=== PATIENT | male | born 1995 | race American Indian/Alaskan Native ===

== ENCOUNTER 2017-05-17 13:19 | Emergency (ER) | payer SELFPAY ==
[2017-05-17 14:03] VITALS: BP 131/57
--- NOTE | 2017-05-17 15:09 | XRay Report ---
LEFT FOOT, 2 views: History: Left foot pain. The bony architecture is intact. Bony alignment is normal. No soft tissue abnormalities are seen. The joint spaces appear preserved. IMPRESSION: Normal left foot.
--- NOTE | 2017-05-17 15:49 | Emergency Department Report ---
HPI - General Chief Complaint: Extremity Injury, Lower Time Seen by Provider: 05/17/17 15:25 - HPI HPI: Patient is a 22-year-old male presents to ED complaining of left foot pain times a day. Patient states he was at work at [employer] and was lifting a heavy box when a metal pole fell out of the box and landed on his left foot. Patient states he was wearing heavy work boots at the time. Patient states he is pain and minimal swelling after incident. Patient states pain is worsened with applying pressure to the left foot. He denies loss of sensation on the foot, inability to walk, numbness of the foot ED Past Medical Hx - Past Medical History Previous Medical History?: No - Surgical History Past Surgical History?: No - Social History Smoking Status: Never Smoker Substance Use Type: None - Medications Home Medications: Home Medications Medication Instructions Recorded Confirmed Last Taken Type Cyclobenzaprine [Flexeril 10 MG 10 mg PO QHS #20 tablet 05/17/17 Unknown Rx TAB] Naproxen [Naprosyn] 500 mg PO BID #30 tablet 05/17/17 Unknown Rx ED Review of Systems ROS: Stated complaint: LEFT FOOT INJURY Other details as noted in HPI Constitutional: denies: chills, fever Eyes: denies: eye pain, eye discharge, vision change ENT: denies: ear pain, throat pain Respiratory: denies: cough, shortness of breath, wheezing Cardiovascular: denies: chest pain, palpitations Endocrine: no symptoms reported Gastrointestinal: denies: abdominal pain, nausea, diarrhea Genitourinary: denies: urgency, dysuria Musculoskeletal: denies: back pain, joint swelling, arthralgia Skin: denies: rash, lesions Neurological: denies: headache, weakness, paresthesias Psychiatric: denies: anxiety, depression Hematological/Lymphatic: denies: easy bleeding, easy bruising Physical Exam - Physical Exam Vital Signs: Vital Signs 05/17/17 14:00 Temperature 98.5 F Pulse Rate 55 L Respiratory 18 Rate Blood Pressure 131/57 O2 Sat by Pulse 99 Oximetry Physical Exam: GENERAL: Alert and oriented x3, no apparent distress, Normal Gait, atraumatic. HEAD: Head is normocephalic and a-traumatic. EYES: Extra ocular muscles are intact. Pupils are equal, round, and reactive to light and accommodation. NECK: Supple. Non edematous, No lymphadenopathy or thyromegaly. LUNGS: Symetrical with respiration, No wheezing, no rales or crackles, CTAB. HEART: S1, S2 present, regular rate and rhythm without murmur, no rubs, no gallops. Non tender to palpation BACK: Full range of motion, no spinal tenderness, nontender to palpation. EXTREMITIES/MUSCULOSKELETAL: No cyanosis, clubbing, rash, lesions. Full ROM bilaterally of the foot. UE/LE Pulses 2+ bilaterally. LE and UE 5+ strength bilaterally, minimal swelling at the anterior lateral aspect of the left foot. Tenderness to palpation, no bruising or ecchymoses. No pitting edema NEUROLOGIC: The patient is cooperative with no focal neurologic deficits. Normal speech. Normal sensation in bilateral upper and lower extremities, No loss of sensation, SKIN: Warm and dry, No lesions, No ulceration or induration present. ED Course Vital Signs 05/17/17 14:00 Temperature 98.5 F Pulse Rate 55 L Respiratory 18 Rate Blood Pressure 131/57 O2 Sat by Pulse 99 Oximetry ED Medical Decision Making - Radiology Data Radiology results: report reviewed, image reviewed Ordering Physician: RANJITH SINGLETON MD Date of Service: 05/17/17 Procedure(s): XR foot 2V LT Accession Number(s): [id number] cc: ED MD ARELI Fluoro Time In Minutes: LEFT FOOT, 2 views: History: Left foot pain. The bony architecture is intact. Bony alignment is normal. No soft tissue abnormalities are seen. The joint spaces appear preserved. IMPRESSION: Normal left foot. Transcribed By: TTR Dictated By: GIOVANA YOUNG JR, MD Electronically Authenticated By: GIOVANA YOUNG JR, MD Signed Date/Time: 05/17/17 1505 - Medical Decision Making 37-year-old female presents to ED with myalgia is status post foot accident at work ED course: Patient received Toradol and Flexeril in ED. Vital signs are normal patient is in no acute distress Patient had no sign of crush injury on his foot Discussed with patient follow-up with primary care physician. Discussed the patient and take medications as prescribed. Patient has no neurological deficit. Patient is alert and oriented 3 and understands all instructions given. Discussed drowsiness effect of Flexeril makes her drowsy and not to operate machinery while taking flexeril Critical care attestation.: If time is entered above; I have spent that time in minutes in the direct care of this critically ill patient, excluding procedure time. ED Disposition Clinical Impression: Foot pain, left Injury of foot Qualifiers: Encounter type: initial encounter Laterality: left Qualified Code(s): S99.922A - Unspecified injury of left foot, initial encounter Disposition: TO HOME OR SELFCARE Is pt being admited?: No Does the pt Need Aspirin: No Condition: Stable Instructions: Trigger Point Pain (ED), Arthralgia (ED), Heat Pack Application ( ED) Additional Instructions: Follow-up with primary care physician as referred. Return to ED if worsening symptoms such as numbness, loss of sensation in the foot. Prescriptions: Cyclobenzaprine [Flexeril 10 MG TAB] 10 mg PO QHS #20 tablet Naproxen [Naprosyn] 500 mg PO BID #30 tablet Referrals: PRIMARY CARE, [Primary Care Provider] - 3-5 Days [facility] [Outside] - [facility] - 3[facility]5 Days [facility] [Outside] - 3-5 Days Forms: Accompanied Note, Work/School Release Form(ED) Time of Disposition: 16:14
[2017-05-17] MEDS ORDERED: FLEXERIL PO ONE (15:51)
[2017-05-17] MEDS ORDERED: TORADOL IM ONE (15:51)
== END 2017-05-17 16:35 | disposition home or self-care (01) ==
LOC: ED 13:19
DX: S99.922A Unspecified injury of left foot, initial encounter (principal); W20.8XXA Other cause of strike by thrown, projected or falling object, initial encounter; Y93.89 Activity, other specified; Y92.89 Other specified places as the place of occurrence of the external cause; Y99.8 Other external cause status
CPT/HCPCS: 73620; 96372; 99283; J1885